=== PATIENT | female | born 1970 | race Hispanic/Latino ===

== ENCOUNTER 2017-12-10 21:15 | Emergency (ER) | payer MEDICARE ==
[2017-12-10 21:15] VITALS: BMI 29.1
[2017-12-10 21:23] VITALS: RESP 18; TEMP 98
[2017-12-10] MEDS ORDERED: Phenylephrine 0.5% Nasal Spray (15 ml) NS STA (21:26)
--- NOTE | 2017-12-10 21:28 | ED PDOC ---
Arrival/HPI - General Chief Complaint: ENT Problem Time Seen by Provider: 12/10/17 21:20 Historian: Patient - History of Present Illness Narrative History of Present Illness (Text): 12/10/17 21:28 Casandra Elizabeth is a 47 year old female who presents to the emergency department complaining of a spontaneous nose bleed from the left naris tonight. Patient notes she was recently ill with cold-like symptoms this past week. Patient denies any fever, chills, chest pain, shortness of breath, abdominal pain, nausea, vomiting, neck pain, headache, dizziness, or any other complaints. Symptom Onset: Gradual Symptom Course: Unchanged Activities at Onset: Light Context: Home Past Medical History - Provider Review Nursing Documentation Reviewed: Yes - Past Medical History Past Medical History: No Previous - Psychiatric Hx Substance Use: No - Past Surgical History Past Surgical History: No Previous - Suicidal Assessment Feels Threatened In Home Enviroment: No Family/Social History - Physician Review Nursing Documentation Reviewed: Yes Family/Social History: Unknown Family HX Smoking Status: Never Smoked Hx Alcohol Use: No Hx Substance Use: No Allergies/Home Meds Allergies/Adverse Reactions: Allergies No Known Allergies Allergy (Verified 02/15/15 15:34) Review of Systems - Physician Review All systems were reviewed & negative as marked: Yes - Review of Systems Constitutional: Normal. absent: Fevers Eyes: Normal ENT: Epistaxis Respiratory: Normal. absent: SOB, Cough Cardiovascular: Normal. absent: Chest Pain, Syncope Gastrointestinal: Normal. absent: Diarrhea, Nausea, Vomiting Genitourinary Female: Normal. absent: Dysuria, Frequency, Hematuria, Urine Output Changes Musculoskeletal: Normal. absent: Back Pain, Neck Pain Skin: Normal. absent: Rash Neurological: Normal. absent: Headache, Dizziness Endocrine: Normal Hemo/Lymphatic: Normal Psychiatric: Normal Physical Exam Vital Signs Reviewed: Yes Vital Signs Temp Pulse Resp BP Pulse Ox 12/10/17 21:22 98 F 88 18 131/88 99 Temperature: Afebrile Blood Pressure: Normal Pulse: Regular Respiratory Rate: Normal Appearance: Positive for: Well-Appearing, Non-Toxic, Comfortable Pain Distress: None Mental Status: Positive for: Alert and Oriented X 3 - Systems Exam Head: Present: Atraumatic, Normocephalic Pupils: Present: PERRL Extroacular Muscles: Present: EOMI Conjunctiva: Present: Normal Ears: Present: Normal, NORMAL TM, Normal Canal. No: Erythema, TM Bulging, Fluid , TM Perf Mouth: Present: Moist Mucous Membranes Pharnyx: Present: Normal. No: ERYTHEMA, EXUDATE, TONSILS ENLARGED, Peritonsilar Swelling, Uvular Deviation, Muffled/Hoarse Voice, Strider, Soft Palate/Uvular Edema Nose (External): Present: Atraumatic Nose (Internal): Present: Epistaxis (Oozing blood from left naris) Neck: Present: Normal Range of Motion. No: Meningeal Signs, MIDLINE TENDERNESS , Paraspinal Tenderness Respiratory/Chest: Present: Clear to Auscultation, Good Air Exchange. No: Respiratory Distress, Accessory Muscle Use Cardiovascular: Present: Regular Rate and Rhythm, Normal S1, S2. No: Murmurs Abdomen: No: Tenderness, Distention, Peritoneal Signs Back: Present: Normal Inspection. No: CVA Tenderness, Midline Tenderness, Paraspinal Tenderness Upper Extremity: Present: Normal Inspection. No: Cyanosis, Edema Lower Extremity: Present: Normal Inspection. No: Edema Neurological: Present: GCS=15, CN II-XII Intact, Speech Normal Skin: Present: Warm, Dry, Normal Color. No: Rashes Psychiatric: Present: Alert, Oriented x 3, Normal Insight, Normal Concentration Medical Decision Making ED Course and Treatment: 12/10/17 21:28 Impression: 47 year old female complaining of epistaxis from left nostril. Differential Diagnosis included but are not limited to: epistaxis Plan: -- Phenylephrine -- Reassess and disposition Progress Notes: PROCEDURE: EPISTAXIS MANAGEMENT Performed by the emergency provider Consent: Informed consent was obtained after discussion of the risks, benefits, and alternatives to the procedure. Timeout: A timeout to verify the correct patient, procedure, and site was performed immediately prior to the procedure. Indication: Spontaneou bleedinf from left naris, nasal bleeding control Location: left naris Bleeding Source: Left kiesselbach plexus Cautery: Silver nitrate Post-procedure: Pressure applied. Good hemostasis. The patient was observed following procedure and no repeat episode of bleeding was noted. Patient tolerated the procedure well with no immediate complications. - Medication Orders Current Medication Orders: Discontinued Medications Phenylephrine HCl (Anam-Synephrine 0.5% Nasal [place]) 15 ml NS STAT STA Stop: 12/10/17 21:27 - Scribe Statement The provider has reviewed the documentation as recorded by the Aleksandra Byrne Provider Scribe Attestation: All medical record entries made by the Scribe were at my direction and personally dictated by me. I have reviewed the chart and agree that the record accurately reflects my personal performance of the history, physical exam, medical decision making, and the department course for this patient. I have also personally directed, reviewed, and agree with the discharge instructions and disposition. Disposition/Present on Arrival - Present on Arrival Any Indicators Present on Arrival: No History of DVT/PE: No History of Uncontrolled Diabetes: No Urinary Catheter: No History of Decub. Ulcer: No History Surgical Site Infection Following: None - Disposition Have Diagnosis and Disposition been Completed?: Yes Diagnosis: Epistaxis Disposition: HOME/ ROUTINE Disposition Time: 00:53 Patient Plan: Discharge Patient Problems: Current Active Problems Problem Status Onset Epistaxis Acute Condition: GOOD Discharge Instructions (ExitCare): Nosebleeds (DC) Additional Instructions: Avoid any sneezing/blowing of nose/no digital manipulation/follow up with the ear/nose/throat doctor this week Referrals: Leo Urbina MD [Primary Care Provider] - Follow up with primary Kris Bone DO [Staff Provider] - Follow up with primary Forms: [employer] (Uzbek)
[2017-12-10] MEDS ORDERED: Phenylephrine 0.5% Nasal Spray (15 ml) ONE (21:31)
[2017-12-11 04:06] VITALS: BP 124/76; PULSE 86; O2SAT 100
== END 2017-12-11 01:15 | disposition home or self-care (01) ==
LOC: ED 21:15
DX: R04.0 Epistaxis (principal)

== ENCOUNTER 2018-11-07 10:14 | Outpatient (CLI) | payer MEDICARE | END 2018-11-07 10:15 | disposition home or self-care (01) | LOC: RAD 10:14 ==